=== PATIENT | male | born 1980 | race Caucasian/White ===

== ENCOUNTER 2017-02-19 16:14 | Emergency (ER) | payer MEDICAID ==
[~2017-02-19] VITALS: Ht 172.7 cm; Wt 83.0 kg
[~2017-02-19 16:14] MED LIST: CYCL-1 PO; DIAZ2TAB PO; DICL50TA8 PO; DIPH-423 PO; HYDR-569 PO; METH-360 PO; ONDA4TAB6 PO; PROC-8 PO; PROC5TAB56 PO
[2017-02-19 16:24] VITALS: BP 154/111
[2017-02-19] MEDS ORDERED: ondansetron 4mg rapidly disintigrating tab PO ONE (18:35)
[2017-02-19] MEDS ORDERED: diphenhydrAMINE 50 mg/ml inj IM ONE (18:35)
[2017-02-19] MEDS ORDERED: proCHLORperazine 10 MG/2 ml inj IM ONE (18:35)
== END 2017-02-19 19:52 | disposition home or self-care (01) ==
LOC: ER 16:15
DX: G43.919 Migraine, unspecified, intractable, without status migrainosus (principal); E78.00 Pure hypercholesterolemia, unspecified; I10 Essential (primary) hypertension; G89.29 Other chronic pain; Z88.1 Allergy status to other antibiotic agents; Z88.8 Allergy status to other drugs, medicaments and biological substances
CPT/HCPCS: 96372; 99284; J0780; J1200

== ENCOUNTER 2017-03-18 18:13 | Emergency (ER) | payer MEDICAID ==
[~2017-03-18] VITALS: Ht 172.7 cm; Wt 80.0 kg
[2017-03-18] MEDS ORDERED: proCHLORperazine 10 MG/2 ml inj IV ONE (20:35)
[2017-03-18] MEDS ORDERED: diphenhydrAMINE 50 mg/ml inj IV ONE (20:35)
[2017-03-18] MEDS ORDERED: SUMAtriptan succ. 6 MG/0.5ml vial SQ ONE (20:35)
[2017-03-18] MEDS ORDERED: ketorolac trometh. 30mg/ml inj. IV ONE (20:35)
[2017-03-18] MEDS ORDERED: LORazepam 2 mg/ml vial IV ONE (20:35)
[2017-03-18] MEDS ORDERED: normal saline 1000ML IV soln IVB ONE (20:40)
[2017-03-18 21:01] LABS: BASOPHILS % (AUTO) 0.3 % (0-1); EOSINOPHILS % (AUTO) 0.5 % (0-6); HEMATOCRIT 47.5 % (42.0-52.0); HEMOGLOBIN 16.9 g/dl (14.0-17.9); MEAN CORPUSCULAR HEMOGLOBIN 32.1 PG (27.0-31.0); MEAN CORPUSCULAR HGB CONC 35.5 % (33.0-36.5); MEAN CORPUSCULAR VOLUME 90.6 FL (78-98); MONOCYTES # (AUTO) 0.4 X10'3 (0-0.9); MONOCYTES % (AUTO) 4.7 % (2-12); NEUTROPHILS # (AUTO) 6.8 X10'3 (1.8-7.7); NEUTROPHILS % (AUTO) 73.5 % (42-75); PLATELET COUNT 271 X10'3 (140-440); RED BLOOD COUNT 5.24 X10'6 (4.70-6.10); RED CELL DISTRIBUTION WIDTH 12.2 % (11.5-14.5); WHITE BLOOD COUNT 9.3 X10'3 (4.5-11.0)
[2017-03-18 21:19] LABS: ALANINE AMINOTRANSFERASE 33 U/L (12-78); ALBUMIN 4.4 G/DL (3.4-5.0); ALBUMIN/GLOBULIN RATIO 1.3 (1.1-1.5); ALKALINE PHOSPHATASE 92 IU/L (46-116); ANION GAP 11 (8-16); ASPARTATE AMINO TRANSFERASE 21 U/L (10-37); BILIRUBIN,TOTAL 0.9 MG/DL (0.1-1.0); BLOOD UREA NITROGEN 13 MG/DL (7-18); BUN/CREATININE RATIO 11.8 (5.4-32.0); CALCIUM 9.5 MG/DL (8.5-10.1); CHLORIDE 107 MMOL/L (99-107); GLUCOSE 100 MG/DL (70-104); POTASSIUM 3.3 MMOL/L (3.5-5.1); SODIUM 142 MMOL/L (135-145); TOTAL CARBON DIOXIDE 23.6 MMOL/L (24-32); TOTAL PROTEIN 7.8 G/DL (6.4-8.2); eGFR 76 ML/MIN
[2017-03-18 21:21] VITALS: BP 147/99
== END 2017-03-18 23:42 | disposition home or self-care (01) ==
LOC: ER 18:13
DX: G43.909 Migraine, unspecified, not intractable, without status migrainosus (principal); E78.00 Pure hypercholesterolemia, unspecified; I10 Essential (primary) hypertension; Z88.1 Allergy status to other antibiotic agents; Z88.8 Allergy status to other drugs, medicaments and biological substances; Z91.048 Other nonmedicinal substance allergy status
CPT/HCPCS: 36415; 70450; 80053; 85025; 96361; 96372; 96374; 96375; 99285; J0780; J1200; J1885; J2060; J3030; J7030

== ENCOUNTER 2017-04-03 13:20 | Emergency (ER) | payer MEDICAID, OTHER ==
[~2017-04-03] VITALS: Ht 172.7 cm; Wt 82.4 kg
[2017-04-03 13:23] VITALS: BP 153/110
[2017-04-03] MEDS ORDERED: proCHLORperazine 10mg tablet PO ONE (13:35)
[2017-04-03] MEDS ORDERED: diphenhydrAMINE 50 mg/ml inj IM ONE (13:35)
[2017-04-03] MEDS ORDERED: ketorolac trometh inj. 60 MG/2 ML VIAL IM ONE (13:35)
[2017-04-03] MEDS ORDERED: LORazepam 2 mg/ml vial IM ONE (13:45)
== END 2017-04-03 14:24 | disposition home or self-care (01) ==
LOC: ER 13:21
DX: G43.909 Migraine, unspecified, not intractable, without status migrainosus (principal); E78.00 Pure hypercholesterolemia, unspecified; I10 Essential (primary) hypertension; G89.29 Other chronic pain; Z88.8 Allergy status to other drugs, medicaments and biological substances; Z79.899 Other long term (current) drug therapy
CPT/HCPCS: 96372; 99284; J1200; J1885; J2060; Q0164

== ENCOUNTER 2017-05-15 11:49 | Emergency (ER) | payer OTHER, MEDICAID ==
[~2017-05-15] VITALS: Ht 172.7 cm; Wt 83.5 kg
[2017-05-15] MEDS ORDERED: proCHLORperazine 10 MG/2 ml inj IM ONE (12:15)
[2017-05-15] MEDS ORDERED: diphenhydrAMINE 50 mg/ml inj IM ONE (12:15)
[2017-05-15] MEDS ORDERED: chlorproMAZINE 25mg/ml inj. IM ONE (12:15)
[2017-05-15] MEDS ORDERED: chlorproMAZINE 25mg tablet PO ONE (12:35)
[2017-05-15] MEDS ORDERED: chlorproMAZINE 25mg tablet PO SCH (12:35)
[2017-05-15 13:28] VITALS: BP 142/112
[2017-05-15] MEDS ORDERED: SUMAtriptan succ. 6 MG/0.5ml vial SQ ONE (13:35)
== END 2017-05-15 14:23 | disposition home or self-care (01) ==
LOC: ER 11:49
DX: R51 Headache (principal); I10 Essential (primary) hypertension; E78.00 Pure hypercholesterolemia, unspecified; G89.29 Other chronic pain
CPT/HCPCS: 96372; 99284; J0780; J1200; J3030; Q0161; J3230

== ENCOUNTER 2017-07-17 12:49 | Emergency (ER) | payer OTHER, MEDICAID ==
[~2017-07-17] VITALS: Ht 172.7 cm; Wt 89.5 kg
[2017-07-17 12:55] VITALS: BP 156/116
[2017-07-17] MEDS ORDERED: ibuprofen tablet 400 MG TABLET PO ONE (13:15)
== END 2017-07-17 13:50 | disposition home or self-care (01) ==
LOC: ER 12:49
DX: S93.402A Sprain of unspecified ligament of left ankle, initial encounter (principal); G43.909 Migraine, unspecified, not intractable, without status migrainosus; I10 Essential (primary) hypertension; G89.29 Other chronic pain; E78.00 Pure hypercholesterolemia, unspecified; Z90.49 Acquired absence of other specified parts of digestive tract; Z88.8 Allergy status to other drugs, medicaments and biological substances; Z79.899 Other long term (current) drug therapy; V00.128A Other non-in-line roller-skating accident, initial encounter; Y93.89 Activity, other specified; Y92.89 Other specified places as the place of occurrence of the external cause; Y99.8 Other external cause status
CPT/HCPCS: 29515; 73600; 99284

== ENCOUNTER 2017-11-23 18:15 | Emergency (ER) | payer MEDICAID, OTHER ==
[~2017-11-23] VITALS: Ht 172.7 cm; Wt 90.0 kg
[~2017-11-23 18:15] MED LIST changes: +HYDR-4383 PO; -HYDR-569 PO
[2017-11-23 19:12] LABS: BASOPHILS # (AUTO) 0.1 X10'3 (0-0.2); BASOPHILS % (AUTO) 0.4 % (0-1); EOSINOPHILS # (AUTO) 0.1 X10'3 (0-0.9); EOSINOPHILS % (AUTO) 0.6 % (0-6); HEMATOCRIT 51.2 % (42.0-52.0); HEMOGLOBIN 17.7 g/dl (14.0-17.9); LYMPHOCYTES # (AUTO) 2.1 X10'3 (1.1-4.8); LYMPHOCYTES % (AUTO) 13.3 % (21-51); MEAN CORPUSCULAR HEMOGLOBIN 32.2 PG (27.0-31.0); MEAN CORPUSCULAR HGB CONC 34.6 % (33.0-36.5); MEAN CORPUSCULAR VOLUME 92.9 FL (78-98); MEAN PLATELET VOLUME 8.8 FL (7.4-10.4); MONOCYTES # (AUTO) 0.8 X10'3 (0-0.9); MONOCYTES % (AUTO) 5.3 % (2-12); NEUTROPHILS # (AUTO) 12.5 X10'3 (1.8-7.7); NEUTROPHILS % (AUTO) 80.4 % (42-75); PLATELET COUNT 298 X10'3 (140-440); RED BLOOD COUNT 5.51 X10'6 (4.70-6.10); RED CELL DISTRIBUTION WIDTH 11.8 % (11.5-14.5); WHITE BLOOD COUNT 15.6 X10'3 (4.5-11.0)
[2017-11-23 19:29] LABS: ALANINE AMINOTRANSFERASE 59 U/L (12-78); ALBUMIN/GLOBULIN RATIO 1.1 (1.1-1.5); ALKALINE PHOSPHATASE 83 IU/L (46-116); ANION GAP 14 (8-16); ASPARTATE AMINO TRANSFERASE 30 U/L (10-37); BILIRUBIN,TOTAL 0.7 MG/DL (0.1-1.0); BLOOD UREA NITROGEN 16 MG/DL (7-18); BUN/CREATININE RATIO 11.6 (5.4-32.0); CALCIUM 9.3 MG/DL (8.5-10.1); CHLORIDE 102 MMOL/L (99-107); CREATININE 1.38 MG/DL (0.60-1.10); GLUCOSE 153 MG/DL (70-104); PARTIAL THROMBOPLASTIN TIME 24 SECONDS (22-32); POTASSIUM 3.4 MMOL/L (3.5-5.1); SODIUM 139 MMOL/L (135-145); TOTAL CARBON DIOXIDE 22.7 MMOL/L (24-32); TOTAL PROTEIN 7.6 G/DL (6.4-8.2); TROPONIN I < 0.04 NG/ML (0.0-0.05); eGFR 58 ML/MIN
[2017-11-23 20:27] LABS: CLARITY,URINE CLEAR (Clear); COLOR,URINE YELLOW (Yellow); GLUCOSE, URINE NEGATIVE (Neg); KETONES,URINE TRACE mg/dl (Neg); LEUKOCYTE ESTERASE ,URINE NEGATIVE (Neg); NITRITES, URINE NEGATIVE (Neg); OCCULT BLOOD,URINE TRACE-INTACT (Neg); PROTEIN,URINE 100 mg/dl (Neg); UROBILINOGEN,URINE 0.2 E.U/dL (0.2-1.0)
[2017-11-23 20:36] LABS: URINE AMPHETAMINE SCREEN NEGATIVE (Neg); URINE BARBITUATE SCREEN NEGATIVE (Neg); URINE BENZODIAZEPINES SCREEN NEGATIVE (Neg); URINE CANNABINOID SCREEN POSITIVE (Neg); URINE COCAINE SCREEN NEGATIVE (Neg); URINE METHADONE SCREEN NEGATIVE (Neg); URINE OPIATE SCREEN NEGATIVE (Neg); URINE PHENCYCLIDINE SCREEN NEGATIVE (Neg)
[2017-11-23] MEDS ORDERED: dexamethasone sod phosphate 10mg/ml inj IV STA (20:44)
[2017-11-23] MEDS ORDERED: ketorolac tromethamine 15mg/ml inj. IV ONE (20:45)
[2017-11-23] MEDS ORDERED: diphenhydrAMINE 50 mg/ml inj IV ONE (20:45)
[2017-11-23] MEDS ORDERED: normal saline 1000ML IV soln IVB ONE (20:45)
[2017-11-23] MEDS ORDERED: LORazepam 2 mg/ml vial IV ONE (20:45)
[2017-11-23] MEDS ORDERED: metoclopramide 5 mg/ml inj IV ONE (20:45)
[2017-11-23 20:49] LABS: UA COLLECTION TYPE VOIDED
[2017-11-23 20:50] LABS: BACTERIA,URINE FEW /HPF (Neg); CAL OXALATE CRYSTALS FEW /HPF (NEGATIVE); MUCUS STRANDS MANY /LPF (Neg); RBC,URINE 0-2 /HPF (0-2); SQUAMOUS EPITHELIAL CELL,UR FEW /LPF (FEW); WBC,URINE 0-4 /HPF (0-4)
[2017-11-23 20:51] LABS: SPERM FEW /HPF (NEGATIVE)
[2017-11-23] MEDS ORDERED: LORazepam 2 mg/ml vial IV STA (22:16)
[2017-11-23 23:19] VITALS: BP 154/98
== END 2017-11-23 23:21 | disposition home or self-care (01) ==
LOC: ER 18:15
DX: G43.909 Migraine, unspecified, not intractable, without status migrainosus (principal); E78.00 Pure hypercholesterolemia, unspecified; I10 Essential (primary) hypertension; G89.29 Other chronic pain; Z90.49 Acquired absence of other specified parts of digestive tract; Z88.1 Allergy status to other antibiotic agents; Z88.8 Allergy status to other drugs, medicaments and biological substances; Z79.899 Other long term (current) drug therapy
CPT/HCPCS: 36415; 80053; 80305; 81001; 84484; 85025; 85610; 85730; 93005; 96374; 96375; 96376; 99285; J1100; J1200; J1885; J2060; J2765

== ENCOUNTER → 2018-02-23 | Emergency (ER) | payer MEDICAID ==
[~2018-02-23] VITALS: Ht 172.7 cm; Wt 90.0 kg
[~2018-02-23] MED LIST changes: +DEC1T PO; +cyclobenzaprine 10mg tablet PO ONE; +dexamethasone sod phosphate 10mg/ml inj IV STA; +diphenhydrAMINE 50 mg/ml inj IV ONE; +ketorolac trometh. 30mg/ml inj. IV ONE; +metoclopramide 5 mg/ml inj IV ONE; +normal saline 1000ML IV soln IVB ONE
[2018-02-23 13:52] VITALS: BP 136/105
== END | disposition home or self-care (01) ==
LOC: ER 13:31
DX: G43.909 Migraine, unspecified, not intractable, without status migrainosus (principal); R11.2 Nausea with vomiting, unspecified; E78.00 Pure hypercholesterolemia, unspecified; I10 Essential (primary) hypertension; G89.29 Other chronic pain; Z90.49 Acquired absence of other specified parts of digestive tract; Z88.1 Allergy status to other antibiotic agents; Z88.8 Allergy status to other drugs, medicaments and biological substances; Z79.899 Other long term (current) drug therapy
CPT/HCPCS: 96361; 96374; 96375; 99283; J1100; J1200; J1885; J2765; J7030

== ENCOUNTER 2018-02-28 11:47 | Emergency (ER) | payer MEDICAID ==
[~2018-02-28] VITALS: Ht 172.7 cm; Wt 92.0 kg
[~2018-02-28 11:47] MED LIST changes: -DEC1T PO; -cyclobenzaprine 10mg tablet PO ONE; -dexamethasone sod phosphate 10mg/ml inj IV STA; -diphenhydrAMINE 50 mg/ml inj IV ONE; -ketorolac trometh. 30mg/ml inj. IV ONE; -metoclopramide 5 mg/ml inj IV ONE; -normal saline 1000ML IV soln IVB ONE
[2018-02-28] MEDS ORDERED: dexamethasone sod phosphate 10mg/ml inj IV STA (11:58)
[2018-02-28] MEDS ORDERED: ondansetron/PF 4mg/2ml inj IV ONE (12:00)
[2018-02-28] MEDS ORDERED: LORazepam 2 mg/ml vial IV ONE (12:00)
[2018-02-28] MEDS ORDERED: normal saline 1000ML IV soln IVB ONE (12:00)
[2018-02-28] MEDS ORDERED: ketorolac trometh. 30mg/ml inj. IV ONE (13:10)
[2018-02-28] MEDS ORDERED: proCHLORperazine 10 MG/2 ml inj IV ONE (13:10)
[2018-02-28] MEDS ORDERED: diphenhydrAMINE 50 mg/ml inj IV ONE (14:00)
[2018-02-28] MEDS ORDERED: metoclopramide 5 mg/ml inj IV ONE (14:00)
[2018-02-28] MEDS ORDERED: morphine 4 MG/ML inj SYRINge IV ONE (14:30)
[2018-02-28] MEDS ORDERED: iohexol 350MG/ML 100ml bottle IV ONE (15:09)
[2018-02-28] MEDS ORDERED: HYDROmorphone 1 mg/ml syringe IV ONE (16:35)
[2018-02-28 16:45] VITALS: BP 154/67
== END 2018-02-28 17:07 | disposition home or self-care (01) ==
LOC: ER 11:47
DX: G43.909 Migraine, unspecified, not intractable, without status migrainosus (principal); R55 Syncope and collapse; E78.00 Pure hypercholesterolemia, unspecified; I10 Essential (primary) hypertension; G89.29 Other chronic pain; Z88.1 Allergy status to other antibiotic agents; Z88.8 Allergy status to other drugs, medicaments and biological substances; Z79.899 Other long term (current) drug therapy; Z90.49 Acquired absence of other specified parts of digestive tract
CPT/HCPCS: 70460; 70496; 96361; 96374; 96375; 99284; J0780; J1100; J1170; J1200; J1885; J2060; J2270; J2405; J2765; J7030; Q9967; 70498

== ENCOUNTER 2018-03-07 08:29 | Emergency (ER) | payer MEDICAID ==
[~2018-03-07] VITALS: Ht 172.7 cm; Wt 89.5 kg
[2018-03-07] MEDS ORDERED: LORazepam 2 mg/ml vial IV ONE (08:55)
[2018-03-07] MEDS ORDERED: diphenhydrAMINE 50 mg/ml inj IV ONE (08:55)
[2018-03-07] MEDS ORDERED: dexamethasone sod phosphate 10mg/ml inj IM STA (08:55)
[2018-03-07] MEDS ORDERED: metoclopramide 5 mg/ml inj IV ONE (08:55)
[2018-03-07] MEDS ORDERED: normal saline 1000ML IV soln IVB ONE (08:55)
[2018-03-07] MEDS ORDERED: ketorolac trometh. 30mg/ml inj. IV ONE (08:55)
[2018-03-07] MEDS ORDERED: KETAMINE IV ONE ×2 (09:35→09:41)
[2018-03-07] MEDS ORDERED: NORMAL SALINE IV ONE ×2 (09:35→09:41)
[2018-03-07 14:00] VITALS: BP 151/101
== END 2018-03-07 14:03 | disposition home or self-care (01) ==
LOC: ER 08:29
DX: G43.109 Migraine with aura, not intractable, without status migrainosus (principal); E78.00 Pure hypercholesterolemia, unspecified; I10 Essential (primary) hypertension; G89.29 Other chronic pain; Z90.49 Acquired absence of other specified parts of digestive tract; Z88.1 Allergy status to other antibiotic agents; Z88.8 Allergy status to other drugs, medicaments and biological substances; Z79.899 Other long term (current) drug therapy
CPT/HCPCS: 96365; 96366; 96372; 96375; 99283; J1100; J1200; J1885; J2060; J2765; J7030

== ENCOUNTER 2019-03-07 15:19 | Emergency (ER) | payer MEDICARE, MEDICAID ==
[~2019-03-07] VITALS: Ht 175.3 cm; Wt 85.0 kg
[~2019-03-07 15:19] MED LIST changes: +AMOX-580 PO; +ASPI-1265 PO; -CYCL-1 PO; -DIAZ2TAB PO; -DICL50TA8 PO; -DIPH-423 PO; +GALC120P SQ; -HYDR-4383 PO; +IRBE75TA30 PO; +LACT1CAP26 PO; +MAGN500C16 PO; -METH-360 PO; +MINO10TA16 PO; +OMEP40CA13 PO; -ONDA4TAB6 PO; -PROC-8 PO; -PROC5TAB56 PO; +PROP40TA7 PO
[2019-03-07 15:58] LABS: BASOPHILS % (AUTO) 0.3 % (0-1); EOSINOPHILS # (AUTO) 0.2 X10'3 (0-0.9); EOSINOPHILS % (AUTO) 1.8 % (0-6); HEMATOCRIT 39.4 % (42.0-52.0); LYMPHOCYTES # (AUTO) 1.3 X10'3 (1.1-4.8); LYMPHOCYTES % (AUTO) 14.2 % (21-51); MEAN CORPUSCULAR HGB CONC 35.6 g/dL (33.0-36.5); MEAN CORPUSCULAR VOLUME 89.8 FL (78-98); MEAN PLATELET VOLUME 7.8 FL (7.4-10.4); MONOCYTES # (AUTO) 0.9 X10'3 (0-0.9); MONOCYTES % (AUTO) 10.2 % (2-12); NEUTROPHILS # (AUTO) 6.6 X10'3 (1.8-7.7); NEUTROPHILS % (AUTO) 73.5 % (42-75); PLATELET COUNT 354 X10'3 (140-440); RED BLOOD COUNT 4.39 X10'6 (4.70-6.10); RED CELL DISTRIBUTION WIDTH 12.6 % (11.5-14.5)
[2019-03-07 16:10] LABS: ALANINE AMINOTRANSFERASE 94 U/L (12-78); ALBUMIN 3.1 G/DL (3.4-5.0); ALBUMIN/GLOBULIN RATIO 0.9 (1.1-1.5); ALKALINE PHOSPHATASE 121 IU/L (46-116); AMYLASE 34 U/L (25-115); ANION GAP 9 (8-16); ASPARTATE AMINO TRANSFERASE 30 U/L (10-37); BLOOD UREA NITROGEN 10 MG/DL (7-18); BUN/CREATININE RATIO 11.1 (5.4-32.0); CALCIUM 8.7 MG/DL (8.5-10.1); CHLORIDE 106 MMOL/L (99-107); GLUCOSE 110 MG/DL (70-104); LIPASE 150 U/L (73-393); POTASSIUM 3.7 MMOL/L (3.5-5.1); SODIUM 143 MMOL/L (135-145); TOTAL CARBON DIOXIDE 27.9 MMOL/L (24-32); TOTAL PROTEIN 6.7 G/DL (6.4-8.2); eGFR > 90 ML/MIN
[2019-03-07] MEDS ORDERED: iohexol 300mg/ml 100ml inj. ONE (19:45)
[2019-03-07 19:54] LABS: CLARITY,URINE CLOUDY (Clear); COLOR,URINE YELLOW (Yellow); GLUCOSE, URINE NEGATIVE (Neg); KETONES,URINE 40 mg/dl (Neg); LEUKOCYTE ESTERASE ,URINE NEGATIVE (Neg); NITRITES, URINE NEGATIVE (Neg); OCCULT BLOOD,URINE NEGATIVE (Neg); PH,URINE 7.5 (4.8-8.0); PROTEIN,URINE NEGATIVE (Neg)
[2019-03-07] MEDS ORDERED: proCHLORperazine 10 MG/2 ml inj IV ONE (20:05)
[2019-03-07] MEDS ORDERED: diphenhydrAMINE 50 mg/ml inj IV ONE (20:05)
[2019-03-07] MEDS ORDERED: ketorolac tromethamine 15mg/ml inj. IV ONE (20:05)
[2019-03-07 20:06] LABS: UA COLLECTION TYPE CLN CATCH MIDSTREAM
[2019-03-07 20:11] LABS: AMORPHOUS PHOSPHATES 4+; BACTERIA,URINE NONE SEEN /HPF (Neg); MUCUS STRANDS MODERATE /LPF (Neg); RBC,URINE 0-2 /HPF (0-2); SQUAMOUS EPITHELIAL CELL,UR FEW /LPF (FEW); WBC,URINE 0-4 /HPF (0-4)
[2019-03-07] MEDS ORDERED: AMOX-422 PO (20:57)
[2019-03-07 21:23] VITALS: BP 148/116
== END 2019-03-07 21:26 | disposition home or self-care (01) ==
LOC: ER 15:19
DX: G43.909 Migraine, unspecified, not intractable, without status migrainosus (principal); G89.18 Other acute postprocedural pain; R10.11 Right upper quadrant pain; R11.2 Nausea with vomiting, unspecified; R19.7 Diarrhea, unspecified; E78.00 Pure hypercholesterolemia, unspecified; I10 Essential (primary) hypertension; G89.29 Other chronic pain; Z90.49 Acquired absence of other specified parts of digestive tract; Z88.8 Allergy status to other drugs, medicaments and biological substances; Z79.82 Long term (current) use of aspirin; Z79.899 Other long term (current) drug therapy
CPT/HCPCS: 36415; 74177; 80053; 81001; 82150; 83690; 85025; 96374; 96375; 99285; J0780; J1200; J1885; Q9967

== ENCOUNTER 2021-03-06 17:33 | Emergency (ER) | payer BC, MEDICAID ==
[~2021-03-06] VITALS: Ht 175.3 cm; Wt 88.6 kg
[~2021-03-06 17:33] MED LIST changes: -AMOX-580 PO; -OMEP40CA13 PO; +OMEP40CA21 PO
[2021-03-06 17:48] VITALS: BP 157/90
[2021-03-06] MEDS ORDERED: oxyCODONE IR 5mg (immed. release) tablet PO ONE (23:10)
== END 2021-03-06 23:26 | disposition home or self-care (01) ==
LOC: ER 17:35
DX: S93.401A Sprain of unspecified ligament of right ankle, initial encounter (principal); M25.571 Pain in right ankle and joints of right foot; G43.909 Migraine, unspecified, not intractable, without status migrainosus; E78.00 Pure hypercholesterolemia, unspecified; I10 Essential (primary) hypertension; G89.29 Other chronic pain; Z90.89 Acquired absence of other organs; Z88.8 Allergy status to other drugs, medicaments and biological substances; Z88.1 Allergy status to other antibiotic agents; Z88.5 Allergy status to narcotic agent; Z79.82 Long term (current) use of aspirin; Z79.899 Other long term (current) drug therapy; W00.0XXA Fall on same level due to ice and snow, initial encounter; Y93.89 Activity, other specified; Y92.89 Other specified places as the place of occurrence of the external cause; Y99.8 Other external cause status
CPT/HCPCS: 29515; 73610; 99283

== ENCOUNTER 2022-01-26 14:56 | Emergency (ER) | payer BC, MEDICAID ==
[~2022-01-26] VITALS: Ht 175.3 cm; Wt 90.9 kg
[~2022-01-26 14:56] MED LIST changes: -MAGN500C16 PO; +MAGN500C4 PO
[2022-01-26 16:00] VITALS: BP 148/97
[2022-01-26] MEDS ORDERED: LIDOcaine 1% 30ml preserv. free vial IJ ONE (17:15)
[2022-01-26] MEDS ORDERED: TETanus/Pertussis (Acell)/Diphther VAC/PF (Tdap-Adult) 0.5ml syringe IMVAC ONE (17:15)
[2022-01-26] MEDS ORDERED: CEPH250T PO (18:00)
== END 2022-01-26 18:18 | disposition home or self-care (01) ==
LOC: ER 14:57
DX: S61.211A Laceration without foreign body of left index finger without damage to nail, initial encounter (principal); G43.909 Migraine, unspecified, not intractable, without status migrainosus; E78.00 Pure hypercholesterolemia, unspecified; I10 Essential (primary) hypertension; G89.29 Other chronic pain; Z87.81 Personal history of (healed) traumatic fracture; Z90.49 Acquired absence of other specified parts of digestive tract; Z79.82 Long term (current) use of aspirin; Z88.8 Allergy status to other drugs, medicaments and biological substances; Z88.6 Allergy status to analgesic agent; Z88.2 Allergy status to sulfonamides; Z79.899 Other long term (current) drug therapy; W26.8XXA Contact with other sharp object(s), not elsewhere classified, initial encounter; Y93.89 Activity, other specified; Y92.89 Other specified places as the place of occurrence of the external cause; Y99.8 Other external cause status
CPT/HCPCS: 12001; 73140; 90471; 90715; 99284; J7030; 90461; A6258; A6449

== ENCOUNTER 2022-09-08 21:07 | Emergency (ER) | payer BC, MEDICAID ==
[~2022-09-08] VITALS: Ht 175.3 cm; Wt 89.6 kg
[2022-09-08 21:19] LABS: BASOPHILS % (AUTO) 0.6 % (0-1); EOSINOPHILS # (AUTO) 0.1 X10'3 (0-0.9); HEMATOCRIT 44.5 % (42.0-52.0); HEMOGLOBIN 15.4 g/dl (14.0-17.9); LYMPHOCYTES # (AUTO) 1.8 X10'3 (1.1-4.8); LYMPHOCYTES % (AUTO) 28.2 % (21-51); MEAN CORPUSCULAR HEMOGLOBIN 30.8 PG (27.0-31.0); MEAN CORPUSCULAR HGB CONC 34.7 g/dL (33.0-36.5); MEAN CORPUSCULAR VOLUME 88.6 FL (78-98); MEAN PLATELET VOLUME 7.1 FL (7.4-10.4); MONOCYTES # (AUTO) 0.5 X10'3 (0-0.9); MONOCYTES % (AUTO) 8.1 % (2-12); NEUTROPHILS % (AUTO) 61.1 % (42-75); PLATELET COUNT 242 X10'3 (140-440); RED BLOOD COUNT 5.02 X10'6 (4.70-6.10); RED CELL DISTRIBUTION WIDTH 13.2 % (11.5-14.5); WHITE BLOOD COUNT 6.5 X10'3 (4.5-11.0)
[2022-09-08 21:34] LABS: ALANINE AMINOTRANSFERASE 39 U/L (12-78); ALBUMIN 4.1 G/DL (3.4-5.0); ALBUMIN/GLOBULIN RATIO 1.2 (1.1-1.5); ALKALINE PHOSPHATASE 87 IU/L (46-116); ANION GAP 7 (8-16); ASPARTATE AMINO TRANSFERASE 18 U/L (10-37); BILIRUBIN,TOTAL 0.5 MG/DL (0.1-1.0); BLOOD UREA NITROGEN 21 MG/DL (7-18); BUN/CREATININE RATIO 17.6 (10.0-20.0); CALCIUM 9.5 MG/DL (8.5-10.1); CHLORIDE 107 MMOL/L (99-107); CREATININE 1.19 MG/DL (0.60-1.10); GLUCOSE 103 MG/DL (70-104); SODIUM 144 MMOL/L (135-145); TOTAL CARBON DIOXIDE 30.3 MMOL/L (24-32); TOTAL PROTEIN 7.4 G/DL (6.4-8.2); eGFR 67 ML/MIN
[2022-09-08 22:47] VITALS: TEMP 98.1
[2022-09-09] MEDS ORDERED: metoclopramide 5 mg/ml inj IM ONE (00:15)
[2022-09-09] MEDS ORDERED: ketorolac trometh inj. 60 MG/2 ML VIAL IM ONE (00:15)
[2022-09-09] MEDS ORDERED: acetaminophen 325mg tablet PO ONE (00:15)
[2022-09-09] MEDS ORDERED: diphenhydrAMINE 50 mg/ml inj IM ONE (00:15)
[2022-09-09 00:17] VITALS: BP 151/110; PULSE 68; O2SAT 98
[2022-09-09] MEDS ORDERED: dexamethasone 4mg/ml inj IM ONE (00:20)
[2022-09-09 00:36] VITALS: RESP 15
== END 2022-09-09 01:05 | disposition home or self-care (01) ==
LOC: ER 21:08
DX: R07.9 Chest pain, unspecified (principal)
CPT/HCPCS: 36415; 80053; 83880; 84484; 85025; 93005; 96372; 99284; J1100; J1200; J1885; J2765

== ENCOUNTER 2024-10-22 20:06 | Emergency (ER) | payer BC, MEDICAID ==
[~2024-10-22] VITALS: Ht 172.7 cm; Wt 95.0 kg
--- NOTE | 2024-10-22 20:51 | Physician Documentation ---
History of Present Illness ~ Chief Complaint: Head Pain Stated Complaint: MIGRAIN Time Seen by MD: 20:50 Primary Medical Doctor: Nataly Giron, [facility] group in [facility] Patient presents to the emergency room with acute onset migraine headache started this morning. Long history of migraines and he states this feels similar with photophobia as well as seen some scintillating scotomas. No fevers Medication Reconciliation Allergies: Coded Allergies: sumatriptan (Verified Allergy, Severe, 03/06/21) warfarin (Verified Allergy, Severe, swelling, 03/06/21) aloe vera (Verified Allergy, Intermediate, blisters, 03/06/21) ciprofloxacin (Verified Allergy, Unknown, 03/06/21) morphine (Verified Allergy, Unknown, 03/06/21) SWELLING, N/V Scheduled Aspirin (Aspirin), 1 TAB.CHEW PO DAILY, (Reported) Galcanezumab-Gnlm (Emgality), 120 MG SQ Q28D, (Reported) Irbesartan* (Avapro*), 1 TAB PO DAILY, (Reported) Lactobacillus Rhamnosus (Culturelle), 10,000 MMU PO Q12H Magnesium Oxide (Magnesium), 500 MG PO DAILY, (Reported) Minoxidil* (Loniten*), 1 TAB PO Q12H, (Reported) Omeprazole (Prilosec), 1 CAP PO DAILY, (Reported) Propranolol Hcl (Propranolol Hcl), 1 TAB PO Q12H, (Reported) Past Medical History Past Medical History: Headache, Migraine, High Cholesterol, Hypertension, Chronic Pain, Chronic Back Pain, Extremity Fracture Past Surgical History: appendectomy Alcohol Use: None Drug Use: none Lives with: Family Lives In: Home Occupation: employed Review of Systems ROS All review of systems negative except as per HPI Physical Exam Vital Signs: Temperature: 97.5, Source: Temporal, Heart Rate: 59, Respiratory Rate: 16, BP: 198/127, Pulse Oximetry: 99, Weight: 95.000 Oxygen Flow Rate: 0 Physical Exam General: Patient is awake, alert, oriented x4 in no acute distress Head: Normocephalic and atraumatic. Eyes: Conjunctival normal. EOMI. PERRL. ENT: Mucous membranes moist. Neck: Supple, trachea is midline. Chest: Clear to auscultation bilaterally without rales, rhonchi, or wheezes. There is no accessory muscle use or retractions. Cardiac: RRR without murmurs, gallops, or rubs. Neuro: Cranial nerves II-XII grossly intact. No focal neuro deficits. Patient ambulating without difficulty. Progress Results/Orders Results/Orders Completed Orders - ANASTASIIA FOWLER MD Ketorolac Trometh 15mg/Ml Vial (Toradol (10/22/24 20:55) Normal Saline 1000ml (0.9% Sodium Chlori (10/22/24 20:55) Acetaminophen 1,000mg/100ml Iv (Ofirmev (10/22/24 20:55) Ondansetron Inj. (Zofran 4mg/2ml Vial) (10/22/24 20:55) Metoclopramide Inj (Reglan Inj) (10/22/24 21:00) Diphenhydramine Inj (Benadryl Inj.) (10/22/24 21:00) Medications Received in ER Medications (Trade) Dose Ordered Sig/Florencio Route PRN Reason Start Time Stop Time Status Last Admin Dose Admin (Toradol injection) 15 mg ONCE ONCE IV 10/22/24 20:55 10/22/24 21:03 DC 10/22/24 21:08 15 MG Sodium Chloride 1,000 ml @ 1,000 mls/hr ONCE ONCE IV 10/22/24 20:55 10/22/24 21:54 DC 10/22/24 21:05 1,000 MLS/HR Acetaminophen 100 ml @ 400 mls/hr ONCE ONCE IV 10/22/24 20:55 10/22/24 21:09 DC 10/22/24 21:05 400 MLS/HR (Zofran 4mg/2ml vial) 8 mg ONCE ONCE IV 10/22/24 20:55 10/22/24 20:56 DC 10/22/24 21:06 8 MG (Reglan inj) 10 mg ONCE ONCE IV 10/22/24 21:00 10/22/24 21:01 DC 10/22/24 21:08 10 MG (Benadryl inj.) 25 mg ONCE ONCE IV 10/22/24 21:00 10/22/24 21:01 DC 10/22/24 21:09 25 MG Vital Signs 10/22/24 10/22/24 10/22/24 10/22/24 20:17 20:38 21:08 22:06 Temp 97.5 Pulse 59 63 Resp 18 16 15 16 B/P (MAP) 198/127 154/99 (117) Pulse Ox 99 99 O2 Flow Rate 0 Medical Decision Making Findings Patient feeling much better asking to go. Patient presented to the emergency room with headache described as a migraine. Differentials include but are not limited to migraine, meningitis, intracranial bleed, cluster headache. Given patient's history and response to therapy he had not feel emergent labs or imaging indicated. Departure Disposition: 01 HOME / SELF CARE / HOMELESS Impression: Primary Impression: Migraine Condition: Improved Discharge Instructions: Migraine Headache Referrals: NO PRIMARY CARE PROVIDER (PCP) Signature Scribe Signature: No scribe Attestation: The note accurately reflects work and decisions made by me.Anastasiia Fowler MD 10/22/24 22:39 ANASTASIIA FOWLER MD Oct 22, 2024 20:51
[2024-10-22] MEDS: acetaminophen 1,000mg/100ml IV 100 ML IV ONE (21:05)
[2024-10-22] MEDS: normal saline 1000ml 1,000 ML IV ONE (21:05)
[2024-10-22] MEDS: ondansetron/PF 4mg/2ml inj IV ONE (21:06)
[2024-10-22] MEDS: metoclopramide 5 mg/ml inj IV ONE (21:08)
[2024-10-22] MEDS: ketorolac trometh 15mg/ml vial 15 MG/ML ML IV ONE (21:08)
[2024-10-22 22:45] VITALS: BP 128/80; PULSE 80; RESP 16; TEMP 98.1; O2SAT 99
== END 2024-10-22 22:48 | disposition home or self-care (01) ==
LOC: ER 20:06
DX: G43.909 Migraine, unspecified, not intractable, without status migrainosus (principal); I10 Essential (primary) hypertension; E78.00 Pure hypercholesterolemia, unspecified; Z88.1 Allergy status to other antibiotic agents; Z88.5 Allergy status to narcotic agent; Z90.49 Acquired absence of other specified parts of digestive tract
CPT/HCPCS: 96365; 96375; 99285; J0131; J1200; J1885; J2405; J2765; J7030

== ENCOUNTER 2024-11-18 16:14 | Outpatient (CLI) | payer BC ==
--- NOTE | 2024-11-18 16:58 | RADIOLOGY REPORT ---
Indication: LEFT ANKLE PAIN Technique: DI ANKLE, COMPLETE(3VW MIN)ANKLECPLT Comparison: None FINDINGS/IMPRESSION: No radiographic evidence for acute fracture or dislocation. No significant soft tissue edema. No radiopaque foreign body.
== END 2024-11-18 23:59 | disposition home or self-care (01) ==
LOC: RAD 16:14
PROVIDERS: ATTEND Family Medicine
DX: M25.572 Pain in left ankle and joints of left foot (principal); G89.29 Other chronic pain
CPT/HCPCS: 73610